=== PATIENT | female | born 1980 | race African-American/Black ===

== ENCOUNTER 2019-01-23 09:57 | Day surgery (SDC) | payer OTHER ==
[~2019-01-23 09:57] MED LIST: 0.9 % SODIUM CHLORIDE PF 10 ML VIAL IJ ONE; BUPIV. HCL 0.5% (5MG/ML)/EPI. (1:200,000) PF 30 ML VIAL IJ ONE; DEXAMETHASONE SODIUM PHOSPHATE 10 MG/ML VIAL ONE; LIDOCAINE HCL 1% PF 300MG/30ML VIAL ONE; LIDOCAINE HCL 2% PF 100MG/5ML VIAL IJ ONE; MIDAZOLAM HCL 2 MG/2 ML VIAL ONE; NORMAL SALINE 1,000 ML IV.SOLN IV ONE; ONDANSETRON HCL/PF 4 MG/ 2ML VIAL ONE; PROPOFOL 200 MG/20 ML VIAL IV ONE; ROCURONIUM BROMIDE 10 MG/ML 5ML VIAL ONE; SEVOFLURANE 250 ML LIQUID IH ONE; SUGAMMADEX SODIUM 200 MG/2 ML VIAL IV ONE; ceFAZolin SODIUM 1 GM VIAL ONE; fentaNYL CITRATE/PF 100 MCG/2 ML INJ. ONE
[2019-01-23] MEDS ORDERED: HYDROmorphone HCL/PF 1 MG/ML VIAL ONE (14:16)
[2019-01-23] MEDS ORDERED: fentaNYL CITRATE/PF 100 MCG/2 ML INJ. ONE (14:38)
== END 2019-01-23 15:46 | disposition home or self-care (01) ==
LOC: OPSURG 09:57
PROVIDERS: ATTEND Physical Medicine & Rehabilitation
DX: M25.551 Pain in right hip (principal); M25.552 Pain in left hip
CPT/HCPCS: 63650; 63685; C1767; C1787; C1897; J0690; J1170; J2001; J2250; J2405; J2704; J3010; J7030